=== PATIENT | female | born 1950 | race Caucasian/White ===

== ENCOUNTER → 2023-06-22 13:30 | Outpatient (REF) | payer MEDICARE, OTHER, SELFPAY | LOC: WDC 13:30 | PROVIDERS: ATTENDING PHYSICIAN Family Medicine | DX: Z12.31 Encounter for screening mammogram for malignant neoplasm of breast (principal); M85.9 Disorder of bone density and structure, unspecified; M85.859 Other specified disorders of bone density and structure, unspecified thigh; M85.89 Other specified disorders of bone density and structure, multiple sites; Z78.0 Asymptomatic menopausal state | CPT/HCPCS: 77063; 77067; 77080 ==

== ENCOUNTER 2023-08-14 11:36 | Emergency (ER) | payer MEDICARE, OTHER, SELFPAY ==
[2023-08-14 11:37] VITALS: BP 197/93
[2023-08-14 11:45] VITALS: BMI 28.3
[2023-08-14 11:47] VITALS: BP 171/85
--- NOTE | 2023-08-14 13:16 | ED.MUSCINJ ---
HPI-Injury
General
Chief Complaint: Musculo-Skeletal Complaint
Source: patient
Exam Limitations: none
Time Seen by Provider: 08/14/23 11:52
Travel History
Have you had any contact with someone who has COVID-19?: No
Do you have any symptoms of coronavirus? Fever > 100 degrees, chills, cough, shortness of breath, sore throat, loss of taste or smell, muscle aches, or headache?: No
History of Present Illness-Injury
Initial Injury comments:
73-year-old female presents complaining of right knee pain starting yesterday. She bent over to put a dog bowl down and felt a pop in the back of her knee. Since then she has had pain ambulating particular going up and down stairs. The clicking
sensation but denies any locking in place or giving way. No fevers. No other complaints at this time
Phy Exam
Physical Exam
Physical Exam:
General: Well-appearing female no acute respiratory distress
HEENT: Normocephalic atraumatic
Musculoskeletal exam: Right knee without effusion. Full extension flexion is good. She is tender over the posterior medial joint line. Knee is stable to ligament exam.
Skin is intact
Injury Course
Orders/Labs/Results
Orders:
Orders
08/14/23 11:43
Knee, Right 1 or 2 Views [CR Knee - Right 1 Or 2 Views] Urgent
Comment:
Reason For Exam: pain, 'popping' sensation
MDM/Problems Addressed
Differential Diagnosis Includes:
Right knee pain. Question strain versus sprain versus underlying DJD
I personally visualized x-rays of the right knee which are negative for acute bony abnormality. Question possible knee sprain perhaps meniscus injury. Will orthopedics for further evaluation
*Critical Care Note
Total Time (30-74mins, 75-104mins- exclusive of procedures): Not Applicable
ED Attending Note
-
Portions of this chart may have been created with voice recognition software.� Occasional wrong word or��sound alike� substitutions may have occurred due to the inherent limitations of voice recognition software.
Discharge Plan
Departure
Patient Disposition: Home (Routine Discharge)
Date of Disposition: 08/14/23
Time of Disposition: 13:29
Patient with high blood pressure during this ER visit?: No
Discharge Problem:
Sprain of knee
Instructions: Knee Sprain (DC)
Referrals:
Arnulfo Coles Jr., DO [Family Provider] -
Gary Blake MD [Active] -
Activity Restrictions/Additional Instructions:
Rest. Use Tyelnol or Ibuprofen for pain. Use brace for support for ambulation. Follow up with orthopedics for further evaluation.
Interventions
Interventions:
*Risk Screen - Suicide Last Done: 08/14/23 11:37
*General Assessment Last Done: 08/14/23 11:37
*Neglect/Abuse Screening Last Done: 08/14/23 11:37
ED- Fall Risk Assessment Last Done: 08/14/23 11:45
*ED COVID-19 Vaccine History Last Done: 08/14/23 11:45
ED-Musculoskeletal Assessment Last Done: 08/14/23 11:45
Discharge Date and Time
Print Language: UPPER SORBIAN
== END 2023-08-14 13:45 | disposition home or self-care (01) ==
LOC: EMR 11:36
PROVIDERS: EMERGENCY PHYSICIAN Emergency Medicine; FAMILY PHYSICIAN Family Medicine
DX: S83.91XA Sprain of unspecified site of right knee, initial encounter (principal); X58.XXXA Exposure to other specified factors, initial encounter; Y93.89 Activity, other specified
CPT/HCPCS: 99283; 29505; 73560

== ENCOUNTER → 2023-08-18 15:10 | Outpatient (REF) | payer MEDICARE, OTHER, SELFPAY | LOC: MRI 3T 15:10 | PROVIDERS: ATTENDING PHYSICIAN Physician Assistant Surgical; FAMILY PHYSICIAN Family Medicine | DX: M23.91 Unspecified internal derangement of right knee (principal) | CPT/HCPCS: 73721 ==

== ENCOUNTER → 2024-02-22 16:13 | Outpatient (REF) | payer MEDICARE, OTHER, SELFPAY | LOC: RCS 16:13 | PROVIDERS: ATTENDING PHYSICIAN Orthopaedic Surgery; FAMILY PHYSICIAN Family Medicine | DX: Z01.818 Encounter for other preprocedural examination (principal) | CPT/HCPCS: 93005 ==

== ENCOUNTER → 2024-05-30 14:46 | Outpatient (REF) | payer MEDICARE, OTHER, SELFPAY | LOC: DHSLP 14:46 | PROVIDERS: ATTENDING PHYSICIAN Family Medicine | DX: G47.33 Obstructive sleep apnea (adult) (pediatric) (principal); G47.31 Primary central sleep apnea; R09.02 Hypoxemia | CPT/HCPCS: 95800 ==

== ENCOUNTER 2024-08-18 06:16 | Day surgery (SDC) | payer MEDICARE, OTHER, SELFPAY | END 2024-08-18 15:44 | disposition home or self-care (01) | LOC: GI 06:16 | PROVIDERS: ATTENDING PHYSICIAN Internal Medicine Gastroenterology; FAMILY PHYSICIAN Family Medicine | DX: Z12.11 Encounter for screening for malignant neoplasm of colon (principal); K57.30 Diverticulosis of large intestine without perforation or abscess without bleeding; K64.8 Other hemorrhoids; Z86.0100 Personal history of colon polyps, unspecified | CPT/HCPCS: G0105 ==

== ENCOUNTER → 2024-09-09 22:00 | Outpatient (REF) | payer MEDICARE, OTHER, SELFPAY | LOC: DHSLP 22:00 | PROVIDERS: ATTENDING PHYSICIAN Internal Medicine; FAMILY PHYSICIAN Family Medicine | DX: G47.33 Obstructive sleep apnea (adult) (pediatric) (principal); R09.02 Hypoxemia | CPT/HCPCS: 95810 ==